=== PATIENT | female | born 1990 | race Asian ===

== ENCOUNTER 2018-06-07 14:33 | Emergency (ER) | payer OTHER ==
[2018-06-07 14:46] VITALS: BP 164/99
--- NOTE | 2018-06-07 15:10 | UC ---
Respiratory Complaint HPI - HPI Summary HPI Summary: 27 old female who had upper respiratory illness symptoms approximately one month ago. She has had a continued hoarse voice and has developed sinus pressure as well as postnasal drainage. She states that over the past couple of days she's felt like she had a fever and she has coughed up brownish sputum every time she coughed throughout the day. (She showed me a picture of the sputum and it is definitely brownish. ) She denies any shortness of breath. She has a history of a thyroidectomy one year ago for thyroid cancer. - History of Current Complaint Chief Complaint: UCRespiratory Stated Complaint: COUGH Time Seen by Provider: 06/07/18 14:35 Hx Obtained From: Patient Hx Last Menstrual Period: norplant ?: No Onset/Duration: Gradual Onset Severity Initially: Mild Severity Currently: Mild Pain Intensity: 4 Character: Cough: Productive - Productive cough of brown sputum over the past couple of days. Aggravating Factors: Deep Breaths Alleviating Factors: Nothing Associated Signs And Symptoms: Positive: Fever - Patient has not registered fever on a thermometer however she feels like she is feverish., URI - Breasts try illness symptoms approximately 4 weeks ago., Nasal Congestion, Hoarseness, Sinus Discomfort - Hoarseness and sinus pressure as well as purulent nasal drainage all the past couple of weeks. - Allergies/Home Medications Allergies/Adverse Reactions: Allergies Allergy/AdvReac Type Severity Reaction Status Date / Time No Known Allergies Allergy Verified 06/07/18 14:47 Home Medications: Home Medications Ibuprofen 400 mg PO 06/07/18 [History] Levothyroxine TAB* [Synthroid TAB*] 150 mcg PO DAILY 06/07/18 [History Confirmed 06/07/18] PMH/Surg Hx/FS Hx/Imm Hx Previously Healthy: Yes Endocrine History: Thyroid Disease - Had a thyroidectomy one year ago for thyroid cancer. - Surgical History Surgical History: Yes Surgery Procedure, Year, and Place: thyroid removal - Family History Known Family History: Positive: None - Social History Alcohol Use: Weekly Substance Use Type: Other Smoking Status (MU): Never Smoked Tobacco Review of Systems All Other Systems Reviewed And Are Negative: Yes Constitutional: Positive: Fever - Patient has felt like she's had a fever over the past couple of days. ENT: Positive: Nasal Discharge, Sinus Congestion, Sinus Pain/Tenderness Respiratory: Positive: Cough - Productive cough of brownish sputum which she showed me. Cardiovascular: Positive: Negative Physical Exam Triage Information Reviewed: Yes Appearance: Well-Appearing, No Pain Distress, Well-Nourished Vital Signs: Initial Vital Signs Temp 98.2 F 06/07/18 14:38 Pulse 111 06/07/18 14:38 Resp 16 06/07/18 14:38 BP 164/99 06/07/18 14:38 Pulse Ox 99 06/07/18 14:38 Vital Signs Reviewed: Yes Eye Exam: Normal ENT: Positive: Hearing grossly normal, Pharynx normal, Nasal congestion, TMs normal, Hoarse voice - Mildly hoarse voice., Sinus tenderness, Uvula midline. Negative: Tonsillar swelling, Tonsillar exudate, Trismus, Muffled voice Neck exam: Normal Neck: Positive: Supple, Nontender, No Lymphadenopathy Respiratory: Positive: No respiratory distress, No accessory muscle use, Rhonchi - Rhonchi in the right mid posterior lung field otherwise clear to auscultation throughout all the other lung basilio. Cardiovascular: Positive: No Murmur, Pulses Normal, Brisk Capillary Refill, Tachycardia Musculoskeletal Exam: Normal Neurological Exam: Normal Psychological Exam: Normal Skin Exam: Normal Respiratory Course/Dx - Course Course Of Treatment: We discussed treating the patient for a sinusitis as well as clinical pneumonia rather than radiating her since I would treat her with an antibiotic anyways. Patient is agreeable to not doing a chest x-ray. She is to not eat any dairy products, antacids or multivitamins 2 hours prior to taking the doxycycline and 2 hours after however she should take it with food. I advised her to call her primary care provider on Saturday and make an appointment for recheck. Patient is agreeable to this plan of action. - Differential Dx/Diagnosis Provider Diagnosis: Pneumonia, Sinusitis - Physician Notification/Consults Discussed Patient Care With: Emil Montiel Time Discussed With Above Provider: 15:00 Discharge - Sign-Out/Discharge Documenting (check all that apply): Patient Departure All imaging exams completed and their final reports reviewed: No Studies - Discharge Plan Condition: Fair Disposition: HOME Prescriptions: DOXYcycline CAP(*) [DOXYcycline 100MG CAP(*)] 100 mg PO BID 10 Days #20 cap Patient Education Materials: Sinusitis (ED), Pneumonia (ED) Referrals: Deidre Gardiner MD [Primary Care Provider] - Additional Instructions: Increase fluids. Not eat or drink dairy products, take multivitamins or antacids 2 hours before you take the doxycycline and 2 hours after you take the doxycycline however you want to be sure and take it with food. You are being treated for a sinus infection as well as clinical pneumonia I believe is located in the posterior middle portion of your right lung. Call your primary care provider on Saturday and see when they would like to see you for a recheck. - Billing Disposition and Condition Condition: FAIR Disposition: Home
== END 2018-06-07 15:11 | disposition home or self-care (01) ==
LOC: UCEAST 14:33
DX: J18.9 Pneumonia, unspecified organism (principal); J32.9 Chronic sinusitis, unspecified; E07.9 Disorder of thyroid, unspecified; Z79.890 Hormone replacement therapy
CPT/HCPCS: 99212; G0463